=== PATIENT | female | born 2000 | race Caucasian/White ===

== ENCOUNTER 2023-07-26 08:43 | Emergency (ER) | payer OTHER, SELFPAY ==
--- NOTE | ~2023-07-26 | XR_ITS ---
EXAMINATION:[id number] DATE: 07/26/2023 09:56 INDICATION: Neck pain TECHNIQUE: AP, lateral, and lateral swimmers views of the cervical spine are provided. COMPARISON: None FINDINGS: There is straightening of the cervical spine which can be positional or due to muscular spa sm. Alignment is normal. The odontoid process is intact. No fracture is identified. Vertebral body he ights and disk spaces are normal. Prevertebral soft tissues are normal. IMPRESSION: 1. No acute osseous abnormality. Reviewed, dictated and finalized at location L. WORKER
[2023-07-26 08:56] VITALS: BP 137/85; PULSE 90; RESP 16; TEMP 36.9; O2SAT 98
--- NOTE | 2023-07-26 09:46 | ED.GENADULT ---
HPI - General Adult General Chief complaint: Neck Pain/Injury Stated complaint: Right neck/shoulder pain Source: patient Mode of arrival: ambulatory Limitations: no limitations History of Present Illness HPI narrative: Patient presents for evaluation of neck pain for the last 3 days. She has radiation into the right upper extremity. She has numbness and tingling in her right arm. She rates her pain 6/10 in severity, described as a shock-like sensation. She has had neck pain in the past but this pain is different than that she has experienced in the past. She has tried ibuprofen but it does not seem to be helping. She has decreased ROM in neck 2/2 pain. Related Data Home Medications Medication Instructions Recorded Confirmed citalopram 40 mg tablet mg 07/26/23 pantoprazole 40 mg tablet,delayed mg PO 07/26/23 release Allergies Allergy/AdvReac Type Severity Reaction Status Date / Time Penicillins Allergy UNKNOWN Verified 08/07/11 14:11 Review of Systems Review of Systems: CONSTITUTIONAL: Denies fever, chills, or sweats. EYES: Denies visual changes, redness, or discharge. ENT: Denies rhinorrhea, congestion, sore throat, or otalgia. CARDIOVASCULAR: Denies chest pain, palpitations, or edema. RESPIRATORY: Denies cough or dyspnea. GASTROINTESTINAL: Denies abdominal pain, nausea, vomiting, or diarrhea. GENITOURINARY: Denies dysuria or hematuria. SKIN: Denies rash or itching. MUSCULOSKELETAL: Reports neck pain with radiation into the right upper extremity. NEUROLOGIC: Reports numbness and tingling in the right upper extremity. Denies headache or weakness. PSYCHIATRIC: Denies anxiety or depression. [facility], [facility] Past Medical History Medical History (Updated 07/26/23 @ 10:12 by GAIL Roth, ) Anxiety Cervical radiculopathy Surgical History Surgical History (Updated 07/26/23 @ 09:50 by GAIL Roth, ) No pertinent past surgical history Family History Family History Mother Family history non-contributory Social History Social History (Updated 07/26/23 @ 09:52 by GAIL Roth, ) Alcohol intake: current Alcohol use details: social Substance use: current Substance use type: marijuana Living arrangements: with family Gender identity (if verbalized by the patient): Female Spiritual care concerns: No Exam Narrative: GENERAL: Well-appearing, well-nourished, and in no acute distress. HEAD: Normocephalic, atraumatic. EYES: PERRLA and EOMI. ENT: Nares clear, no rhinorrhea or epistaxis. Mucous membranes moist. Oropharynx without tonsillar hypertrophy exudate or other lesions. Bilateral TMs pearly gong nonbulging NECK: Supple. No adenopathy or masses. No carotid bruits or JVD. There is tenderness in midline of cervical spine. No tenderness in the paraspinous muscles bilaterally of the cervical spine. Decreased range of motion of neck secondary to pain. CHEST: Clear to auscultation. No respiratory distress. No wheezes rales or rhonchi HEART: Regular rate and rhythm. No murmur heard. Normal peripheral pulses. ABDOMEN: Soft, nontender, nondistended, normal active bowel sounds. EXTREMITIES: Normal range of motion. No edema. SKIN: Warm, dry, no rash. NEURO: No focal deficits. Alert and oriented x3. PSYCH: Normal mood and affect. Course Course Emergency Course: This is a 23-year-old female who presented for evaluation of neck pain. X-ray was performed due to midline tenderness. X-ray negative for fracture. Likely would benefit from nonemergent MRI. Will discharge with Medrol Dosepak, Flexeril and hydrocodone. Warm moist heat may help. Follow up with primary provider. Go to the ER for worsening symptoms. Patient in agreement with plan of care. Level of Care: Express Care Visit Vital Signs Vital signs: Vital Signs Temperature 36.9 C 07/26/23 08:56 Pulse Rate 90 07/26/23
== END 2023-07-26 10:17 | disposition home or self-care (01) ==
PROVIDERS: Emergency Provider Nurse Practitioner; PCP Family Medicine
DX: M54.12 Radiculopathy, cervical region (principal); Z79.899 Other long term (current) drug therapy
CPT/HCPCS: 72040; 99213; G0463